=== PATIENT | male | born 1975 | race Caucasian/White ===

== ENCOUNTER 2017-06-10 20:48 | Emergency (ER) | payer BC ==
[~2017-06-10] VITALS: Ht 167.6 cm; Wt 81.8 kg
[2017-06-10] MEDS ORDERED: ERY500 PO (21:19)
[2017-06-10] MEDS ORDERED: PROP10TA73 PO (21:19)
[2017-06-10] MEDS: ACETAMINOPHEN 500 MG TABLET PO ONE (23:08)
[2017-06-10] MEDS: HYDROCODONE/ACETAMINOPHEN 5-325 MG TABLET PO ONE (23:58)
[2017-06-10] MEDS: IBUPROFEN 600 MG TABLET PO ONE (23:58)
[2017-06-11 00:33] VITALS: BP 131/86
== END 2017-06-11 00:37 | disposition home or self-care (01) ==
LOC: EMS 20:54
DX: J02.9 Acute pharyngitis, unspecified (principal); R51 Headache; I10 Essential (primary) hypertension; Z88.0 Allergy status to penicillin
CPT/HCPCS: 99284